=== PATIENT | female | born 1995 | race Caucasian/White ===

== ENCOUNTER 2018-01-16 10:36 | Emergency (ER) | payer OTHER ==
[2018-01-16 10:41] VITALS: BP 120/69; PULSE 76; RESP 16; TEMP 98.7; O2SAT 100
[2018-01-16] MEDS ORDERED: AUGM875T3 PO (11:13)
--- NOTE | 2018-01-16 11:20 | PD ---
HPI Chief Complaint: Cold / Flu Symptoms Time Seen by Provider: 11:04 Travel History International Travel<30 days: No Contact w/Intl Traveler<30days: No Traveled to known affect area: No History of Present Illness HPI 22-year-old female with history of asthma presents to the emergency room for evaluation of cough and cold symptoms for the past few days. Symptoms started off with a sore throat and then progressed into nasal congestion, laryngitis, and nonproductive cough. She has been taking [id number] medications without significant relief in symptoms. She denies any objective fevers. She takes daily medications for asthma but denies any other chronic medical conditions. Patient also has lower lip swelling that started about 4 days ago after she bit her lip. Over the past 4 days it has progressively increased in size. She denies any drainage from the area. States occasionally bleeds. PFSH Social History Tobacco Use: No Allergies-Medications (Allergen,Severity, Reaction): Coded Allergies: No Known Allergies (Unverified , 01/16/18) Reported Meds & Prescriptions Reported Meds & Active Scripts Active Augmentin (Amoxicillin-Clavulanate) 875-125 Mg Tab 1 Tab PO BID Review of Systems Except as stated in HPI: all other systems reviewed are Neg Physical Exam Narrative GENERAL: Well-nourished, well-developed female no acute distress. Afebrile. Ambulatory. SKIN: Focused skin assessment warm/dry. HEAD: Normocephalic. EYES: No scleral icterus. No injection or drainage. ENT: Mucosa pink and moist. Very mild erythema without exudates. No uvular edema. No uvular, palatal, or tonsillar deviation. Airway patent. Nasal turbinates appear normal without nasal blood, purulent drainage or septal hematoma. Patient has significant edema of the right lower lip. It is not fluctuant or indurated. No drainage. Nontender. NECK: Supple, trachea midline. No JVD or lymphadenopathy. CARDIOVASCULAR: Regular rate and rhythm without murmurs, gallops, or rubs. RESPIRATORY: Breath sounds equal bilaterally. No accessory muscle use. No crackles, rales, wheezes, or rhonchi. Data Data Last Documented VS Vital Signs Date Time Temp Pulse Resp B/P (MAP) Pulse Ox O2 Delivery O2 Flow Rate FiO2 01/16/18 10:41 98.7 76 16 120/69 (86) 100 MDM Medical Decision Making Medical Screen Exam Complete: Yes Emergency Medical Condition: Yes Medical Record Reviewed: Yes Differential Diagnosis URI, pneumonia, strep, laryngitis, viral syndrome, lip infection Narrative Course 22-year-old female presents to the emergency room for evaluation of 2 separate complaints. First complaint is sore throat, congestion, and cough for the past several days. Second complaint is right-sided lower lip swelling for the past 4 days after she bit her lip. Patient states it became more swollen after she developed upper respiratory infection. Physical exam reveals mild edema of the right lower lip without induration or drainage. Nontender. No evidence of strep or pneumonia. Patient likely has wound infection from biting her lip. She will be treated empirically with Augmentin. Patient was informed that her URI is viral in nature and Augmentin will not likely improve her symptoms. Told to follow-up with a primary care physician or return for worsening symptoms. She understands and agrees to plan. Diagnosis Primary Impression: Infection of lip Additional Impression: Upper respiratory infection Qualified Codes: J00 - Acute nasopharyngitis [common cold] Referrals: Primary Care Physician Additional Instructions: Rest and drink plenty of fluids. Take Augmentin as directed, until gone. Follow up with a primary care physician. Return to emergency room for worsening symptoms, as discussed. Scripts Amoxicillin-Clavulanate (Augmentin) 875-125 Mg Tab 1 TAB PO BID for Infection, #20 TAB 0 Refills Prov: Chris Avitia MD 01/16/18 Disposition: 01 DISCHARGE HOME Condition: Stable Apolonia Thomas Jan 16, 2018 11:20
== END 2018-01-16 11:55 | disposition home or self-care (01) ==
LOC: NEPK 10:36
DX: J06.9 Acute upper respiratory infection, unspecified (principal); L08.89 Other specified local infections of the skin and subcutaneous tissue; J45.909 Unspecified asthma, uncomplicated
CPT/HCPCS: 99283